=== PATIENT | male | born 1935 | race Two or more races ===

== ENCOUNTER 2016-05-22 09:10 | Day surgery (SDC) | payer MEDICARE, MEDICAID ==
[~2016-05-22 09:10] MED LIST: FENTANYL 250 MCG/5 ML AMP IV PRN; LACTATED RINGERS 1,000 ML IV SCH; MIDAZOLAM HCL 5 MG/5 ML VIAL IV PRN
[2016-05-22] MEDS ORDERED: IV START KIT ONE (10:04)
[2016-05-22] MEDS ORDERED: SODIUM CHLORIDE 0.9% 1,000 ML ONE (10:04)
[2016-05-22] MEDS ORDERED: FENTANYL 250 MCG/5 ML AMP ONE (10:11)
[2016-05-22] MEDS ORDERED: MIDAZOLAM HCL 5 MG/5 ML VIAL ONE (10:11)
[2016-05-22] MEDS ORDERED: FENTANYL 100 MCG/2 ML VIAL ONE (10:19)
[2016-05-22] MEDS ORDERED: PROPOFOL 20 ML IV ONE (10:19)
== END 2016-05-22 11:51 | disposition home or self-care (01) ==
LOC: SDC 09:10
PROVIDERS: ATTEND Internal Medicine Gastroenterology
PROC: 0DJD8ZZ Inspection of Lower Intestinal Tract, Via Natural or Artificial Opening Endoscopic (ICD-10-PCS; principal; 2016-05-22)
DX: Z08 Encounter for follow-up examination after completed treatment for malignant neoplasm (principal); Z85.038 Personal history of other malignant neoplasm of large intestine; E11.9 Type 2 diabetes mellitus without complications; I10 Essential (primary) hypertension; F32.9 Major depressive disorder, single episode, unspecified; R12 Heartburn; Z79.84 Long term (current) use of oral hypoglycemic drugs
CPT/HCPCS: G0105 ×3